=== PATIENT | female | born 1930 | race Caucasian/White ===

== ENCOUNTER 2018-08-07 09:44 | Outpatient (CLI) | payer MEDICARE, OTHER ==
--- NOTE | 2018-08-07 11:26 | RAD ---
PA AND LATERAL CHEST: History: Dyspnea. FINDINGS: Comparison is made with exam of 12-26-17. The heart is enlarged. The aorta is tortuous. The lungs are well expanded without focal areas of cons olidation, pneumothoraces or pleural effusions. Chronic changes are stable. No acute osseous abnormal ities are identified. IMPRESSION: No acute process. POS: [facility]
== END 2018-08-07 09:45 | disposition home or self-care (01) ==
LOC: RAD 09:44
PROVIDERS: ATTEND Internal Medicine Critical Care Medicine
DX: R06.00 Dyspnea, unspecified (principal)
CPT/HCPCS: 71046

== ENCOUNTER 2018-11-10 08:54 | Outpatient (CLI) | payer MEDICARE, OTHER ==
--- NOTE | 2018-11-10 09:26 | RAD ---
TWO VIEW CHEST: Indication: Dyspnea. Comparison: 08-07-18 FINDINGS: Cardiomegaly is again noted and stable. Vascular markings show mild engorgement and there is some mil d interstitial prominence, possibly mild congestion. No focal infiltrate. No significant effusion. IMPRESSION: Cardiomegaly and mild vascular engorgement, stable when compared to prior exam. No acute interval meño nge. POS: [facility]
== END 2018-11-10 08:55 | disposition home or self-care (01) ==
LOC: RAD 08:54
PROVIDERS: ATTEND Internal Medicine Critical Care Medicine
DX: R06.00 Dyspnea, unspecified (principal); I51.7 Cardiomegaly; I77.89 Other specified disorders of arteries and arterioles
CPT/HCPCS: 71046

== ENCOUNTER 2018-12-09 13:00 | Outpatient (CLI) | payer MEDICARE, OTHER ==
--- NOTE | 2018-12-09 13:19 | RAD ---
EXAM: Chest 2 views: HISTORY: Dyspnea COMPARISON: 12/26/2017 FINDINGS: There is a normal-sized cardiomediastinal silhouette. There is no evidence of consolidation, mass, or pleural effusion. The bones are unremarkable. IMPRESSION: No evidence of acute cardiopulmonary disease
== END 2018-12-09 13:01 | disposition home or self-care (01) ==
LOC: RAD 13:00
PROVIDERS: ATTEND Internal Medicine Critical Care Medicine
DX: R06.00 Dyspnea, unspecified (principal)
CPT/HCPCS: 71046

== ENCOUNTER 2019-02-10 07:34 | Outpatient (CLI) | payer MEDICARE, OTHER ==
--- NOTE | 2019-02-10 08:30 | RAD ---
EXAM: Two views chest PROVIDED CLINICAL HISTORY: Asthma COMPARISON: 12/09/2018 FINDINGS: The cardiac silhouette remains enlarged. The pulmonary vasculature is within normal limits. The lungs are clear. The osseous structures have a normal appearance. Vascular calcifications are again seen in the thoracic aorta. IMPRESSION: 1. Stable cardiomegaly without overt CHF. 2. No acute cardiopulmonary process..
== END 2019-02-10 07:35 | disposition home or self-care (01) ==
LOC: CP 07:34 → RAD 07:35
PROVIDERS: ATTEND Internal Medicine Critical Care Medicine
DX: J45.909 Unspecified asthma, uncomplicated (principal); I51.7 Cardiomegaly
CPT/HCPCS: 71046; 94060; 94727